=== PATIENT | female | born 1985 | race Hispanic/Latino ===

== ENCOUNTER 2019-04-02 02:31 | Emergency (ER) | payer MEDICAID ==
[2019-04-02] MEDS ORDERED: ONDANSETRON HCL 4 MG/2 ML VIAL ONE (03:17)
[2019-04-02] MEDS ORDERED: SODIUM CHLORIDE 0.9% 1000ML 1,000 ML IV ONE (03:17)
[2019-04-02] MEDS ORDERED: KETOROLAC TROMETHAMINE 15MG/ML ONE (03:17)
[2019-04-02 03:38] LABS: BASOPHILS % (AUTO) 0.5 % (0.0-5.0); EOSINOPHILS % (AUTO) 2.9 % (0.0-8.0); HEMATOCRIT 38.9 % (36-48); LYMPHOCYTES % (AUTO) 31.9 % (21.0-51.0); MEAN CORPUSCULAR HEMOGLOBIN 29.1 pg (27.0-33.0); MEAN CORPUSCULAR HGB CONC 33.9 g/dL (32.0-36.0); MEAN CORPUSCULAR VOLUME 85.8 fL (79-99); MONOCYTES % (AUTO) 7.4 % (3.0-13.0); NEUTROPHILS % (AUTO) 57.3 % (40.0-77.0); PLATELET COUNT (AUTO) 291 K/uL (130-400); RED BLOOD CELL COUNT(AUTO) 4.54 MIL/uL (4.00-5.50); RED CELL DISTRIBUTION WIDTH 15.7 % (11.0-15.5); WHITE BLOOD COUNT (AUTO) 8.2 K/uL (4.8-10.8)
[2019-04-02 03:47] LABS: CREATININE 1.1 mg/dL (0.5-1.5); POTASSIUM 3.5 mmol/L (3.5-5.1)
[2019-04-02 03:52] LABS: ALBUMIN 3.3 g/dL (3.5-5.0); BILIRUBIN,DIRECT 0.1 mg/dL (0.0-0.3); BILIRUBIN,TOTAL 0.4 mg/dL (0.2-1.0); TOTAL PROTEIN, SERUM 7.4 g/dL (6.0-8.3)
[2019-04-02 04:25] LABS: APPEARANCE,URINE CLEAR (CLEAR); BILIRUBIN,URINE NEGATIVE (NEGATIVE); COLOR,URINE YELLOW (YELLOW); GLUCOSE, URINE (UA) NEGATIVE (NEGATIVE); KETONES,URINE NEGATIVE (NEGATIVE); LEUKOCYTE ESTERASE ,URINE TRACE (NEGATIVE); NITRATE,URINE NEGATIVE (NEGATIVE); OCCULT BLOOD,URINE NEGATIVE (NEGATIVE); PROTEIN,URINE NEGATIVE (NEGATIVE)
[2019-04-02 04:34] LABS: AMPHET/METH SCREEN,URINE NEGATIVE (NEGATIVE); BARBITURATE SCREEN, URINE NEGATIVE (NEGATIVE); BENZODIAZEPINES SCREEN,URINE NEGATIVE (NEGATIVE); CANNABINOID SCREEN,URINE NEGATIVE (NEGATIVE); COCAINE SCREEN,URINE NEGATIVE (NEGATIVE); OPIATE SCREEN,URINE NEGATIVE (NEGATIVE); PHENCYCLIDINE SCREEN,URINE NEGATIVE (NEGATIVE)
[2019-04-02 04:37] LABS: BACTERIA,URINE Few /HPF (None Seen); MUCUS,URINE Moderate LPF (None Seen); RBC,URINE 0-1 /HPF (0-1); SQUAMOUS EPITHELIAL CELL,UR Moderate /HPF (0-2)
[2019-04-02] MEDS ORDERED: DICYCLOMINE HCL 10 MG/ML 2ML AMP IM ONE (04:51)
== END 2019-04-02 05:13 | disposition home or self-care (01) ==
LOC: EDH 02:31
DX: R10.13 Epigastric pain (principal); R11.0 Nausea; R63.0 Anorexia
CPT/HCPCS: 36415; 80048; 80076; 80305; 81001; 81025; 83690; 85025; 96372; 96374; 96375; 99285; J0500; J1885; J2405; J7030

== ENCOUNTER → 2019-04-04 | Outpatient (CLI) | payer MEDICAID | END | disposition home or self-care (01) | LOC: RAH 09:20 | PROVIDERS: ATTEND Family Medicine | DX: N83.01 Follicular cyst of right ovary (principal); R10.9 Unspecified abdominal pain | CPT/HCPCS: 76700; 76856 ==

== ENCOUNTER 2019-08-28 13:23 | Emergency (ER) | payer MEDICAID, OTHER ==
[2019-08-28] MEDS ORDERED: MAG HYDROX/AL HYDROX/SIMETH ES 30 ML SUSP UDCUP ONE (13:53)
[2019-08-28] MEDS ORDERED: LIDOCAINE HCL 2% VISCOUS 15 ML UDCUP ONE (13:53)
[2019-08-28 13:54] LABS: RAPID GROUP A STREP NEGATIVE (NEGATIVE)
[2019-08-28] MEDS ORDERED: LIDOCAINE HCL-MPF 1% 2ML VIAL ONE (14:57)
[2019-08-28] MEDS ORDERED: CEFTRIAXONE SODIUM 2 GM VIAL ONE (14:57)
[2019-08-28] MEDS ORDERED: IBUPROFEN 800 MG TAB ONE (14:57)
[2019-08-28] MEDS ORDERED: DEXAMETHASONE SOD PHOSPHATE 4 MG/ML 1ML VIAL ONE (14:57)
== END 2019-08-28 15:35 | disposition home or self-care (01) ==
LOC: EDH 13:23
DX: J03.90 Acute tonsillitis, unspecified (principal)
CPT/HCPCS: 87804 ×2; 87880; 96372 ×2; 99284; J0696; J1100; J3490

== ENCOUNTER 2020-04-02 16:16 | Emergency (ER) | payer SELFPAY ==
[2020-04-02 17:01] LABS: APPEARANCE,URINE Cloudy (CLEAR); BILIRUBIN,URINE Negative (NEGATIVE); COLOR,URINE Yellow (YELLOW); GLUCOSE, URINE (UA) Negative (NEGATIVE); KETONES,URINE Trace mg/dL (NEGATIVE); LEUKOCYTE ESTERASE ,URINE Moderate (NEGATIVE); NITRATE,URINE Negative (NEGATIVE); OCCULT BLOOD,URINE Negative (NEGATIVE); PH,URINE 5.5 (5.0-8.0); PROTEIN,URINE Negative (NEGATIVE)
[2020-04-02] MEDS ORDERED: KETOROLAC TROMETHAMINE 30MG/ML ONE (17:02)
[2020-04-02 17:09] LABS: HCG,QUAL RESULT NEGATIVE (NEGATIVE)
[2020-04-02 17:10] LABS: RBC,URINE 0-1 /HPF (0-1)
[2020-04-02 17:11] LABS: BACTERIA,URINE Few /HPF (None Seen); SQUAMOUS EPITHELIAL CELL,UR Moderate /HPF (0-2)
[2020-04-02] MEDS ORDERED: CEFTRIAXONE SODIUM 1 GM ONE (17:36)
[2020-04-02 18:07] LABS: BASOPHILS % (AUTO) 0.3 % (0.0-5.0); EOSINOPHILS % (AUTO) 2.4 % (0.0-8.0); HEMATOCRIT 39.8 % (36-48); LYMPHOCYTES % (AUTO) 25.8 % (21.0-51.0); MEAN CORPUSCULAR HEMOGLOBIN 27.1 pg (27.0-33.0); MEAN CORPUSCULAR HGB CONC 32.7 g/dL (32.0-36.0); MEAN CORPUSCULAR VOLUME 82.9 fL (79-99); NEUTROPHILS % (AUTO) 65.1 % (40.0-77.0); PLATELET COUNT (AUTO) 337 K/uL (130-400)
[2020-04-02 18:22] LABS: POTASSIUM 3.7 mmol/L (3.5-5.1)
[2020-04-02 18:26] LABS: ALBUMIN 3.6 g/dL (3.5-5.0); BILIRUBIN,TOTAL 0.6 mg/dL (0.2-1.0); TOTAL PROTEIN, SERUM 7.9 g/dL (6.0-8.3)
[2020-04-02] MEDS ORDERED: IOHEXOL-350 75 ML VIAL IV ONE (18:41)
[2020-04-02] MEDS ORDERED: MORPHINE SULFATE 4 MG/1ML SYG ONE (18:56)
[2020-04-02] MEDS ORDERED: ONDANSETRON HCL 4 MG/2 ML VIAL ONE (18:56)
== END 2020-04-02 19:44 | disposition home or self-care (01) ==
LOC: EDH 16:16
DX: N30.00 Acute cystitis without hematuria (principal)
CPT/HCPCS: 36415; 74177; 80053; 81001; 81025; 85025; 87088; 96374; 96375; 99285; J0696; J1885; J2270; J2405; J7030; Q9967

== ENCOUNTER 2020-11-11 09:24 | Inpatient (IN) | payer OTHER ==
[~2020-11-11] VITALS: Ht 157.5 cm; Wt 109.8 kg
[2020-11-11 09:50] LABS: BASOPHILS % (AUTO) 0.1 % (0.0-5.0); HEMATOCRIT 39.7 % (36-48); MEAN CORPUSCULAR HEMOGLOBIN 26.2 pg (27.0-33.0); MEAN CORPUSCULAR VOLUME 79.4 fL (79-99); MONOCYTES % (AUTO) 2.7 % (3.0-13.0); NEUTROPHILS % (AUTO) 85.9 % (40.0-77.0); PLATELET COUNT (AUTO) 315 K/uL (130-400); RED CELL DISTRIBUTION WIDTH 14.5 % (11.0-15.5); WHITE BLOOD COUNT (AUTO) 11.5 K/uL (4.8-10.8)
[2020-11-11 09:55] LABS: ABG BASE EXCESS -1.5 mmol/L (-2.0-3.0); ABG HCO3 19.8 mmol/L (21.0-28.0); ABG OXYGEN SATURATION 81.8 % (95.0-99.0); ABG PCO2 26 mmHg (32-45)
[2020-11-11 09:57] LABS: CARBON DIOXIDE 24 mmol/L (21-32); CHLORIDE 98 mmol/L (101-111); CREATININE 1.1 mg/dL (0.5-1.5); GLOMERULAR FILTR. RATE CALC 59 mL/min (>60); GLUCOSE,RANDOM 135 mg/dL (70-105); POTASSIUM 3.2 mmol/L (3.5-5.1); SODIUM SERUM 137 mmol/L (136-145); UREA NITROGEN, BLOOD 13 mg/dL (7-18)
[2020-11-11 09:58] LABS: INR 1.05 (0.85-1.15); PROTHROMBIN TIME 11.4 SEC (9.6-11.6)
[2020-11-11 10:12] LABS: ALANINE AMINOTRANSFERASE 92 U/L (12-78); ALBUMIN 3.4 g/dL (3.5-5.0); ASPARTATE AMINOTRANSFERASE 84 U/L (10-37); BILIRUBIN,TOTAL 0.6 mg/dL (0.2-1.0); CREATINE KINASE, TOTAL 170 U/L (21-232); MYOGLOBIN 87 ng/mL (10-92); TOTAL PROTEIN, SERUM 8.8 g/dL (6.0-8.3); TROPONIN I < 0.04 ng/mL (0.00-0.06)
[2020-11-11] MEDS ORDERED: ALBUTEROL INHALER 90MCG/INH IH ONE (10:41)
[2020-11-11] MEDS ORDERED: ENOXAPARIN SODIUM 60 MG/0.6 ML SQ ONE (10:42)
[2020-11-11] MEDS ORDERED: DEXAMETHASONE SOD PHOSPHATE 10MG/ML 1ML VIAL ONE (10:42)
[2020-11-11] MEDS ORDERED: FAMOTIDINE/PF 20 MG/2 ML VIAL IV ONE (10:43)
[2020-11-11] MEDS ORDERED: AZITHROMYCIN 500MG+NS 250ML 250 ML IV ONE ×2 (10:43→10:44)
[2020-11-11 11:18] LABS: CRP QUANTITATIVE 163.9 mg/L (0.00-9.0)
[2020-11-11] MEDS ORDERED: AZITHROMYCIN 500MG+NS 250ML 250 ML IV SCH (14:00)
[2020-11-11] MEDS ORDERED: ERGOCALCIFEROL (VITAMIN D2) 50,000 UNIT CAPSULE PO SCH (14:00)
[2020-11-11] MEDS: DEXAMETHASONE SOD PHOSPHATE 4 MG/ML 1ML VIAL IVP SCH (14:00)
[2020-11-11] MEDS ORDERED: MORPHINE SULFATE 2 MG/ML 1ML SYG IV PRN (14:00)
[2020-11-11] MEDS ORDERED: PHARMACY COMMUNICATION MISC SCH (14:00)
[2020-11-11] MEDS ORDERED: ACETAMINOPHEN 325 MG TAB PO PRN ×2 (14:00)
[2020-11-11] MEDS ORDERED: ONDANSETRON HCL 4 MG/2 ML VIAL IV PRN (14:00)
[2020-11-11] MEDS ORDERED: ERGOCALCIFEROL (VITAMIN D2) 50,000 UNIT CAPSULE ONE (14:06)
[2020-11-11] MEDS ORDERED: DOXYCYCLINE 100MG+NS 250ML 250 ML IV ONE (14:06)
[2020-11-11] MEDS ORDERED: CEFTRIAXONE SODIUM 1 GM ONE (14:07)
[2020-11-11] MEDS ORDERED: GUAIFENESIN-CODEINE 5 ML SYRUP ONE (15:44)
[2020-11-11 15:50] LABS: APPEARANCE,URINE Cloudy (CLEAR); BILIRUBIN,URINE Negative (NEGATIVE); COLOR,URINE Dark Yellow (YELLOW); GLUCOSE, URINE (UA) Negative (NEGATIVE); KETONES,URINE 15 mg/dL (NEGATIVE); LEUKOCYTE ESTERASE ,URINE Trace (NEGATIVE); NITRATE,URINE Negative (NEGATIVE); OCCULT BLOOD,URINE Negative (NEGATIVE); PROTEIN,URINE POS 2+ mg/dL (NEGATIVE)
[2020-11-11] MEDS ORDERED: SODIUM CHLORIDE 0.9% 1000ML 1,000 ML IV ONE (15:50)
[2020-11-11] MEDS ORDERED: REMDESIVIR (EUA) 520 200 MG in SODIUM CHLORIDE 0.9% 250 ML IV ONE (16:00)
[2020-11-11] MEDS ORDERED: COMPOUND IV REFRIGERATED 1 EACH IVSOLN MISC PRN (16:00)
[2020-11-11 16:46] LABS: BACTERIA,URINE Few /HPF (None Seen); RBC,URINE None Seen /HPF (0-1); WBC,URINE 0-1 /HPF (0-1)
[2020-11-11] MEDS ORDERED: LIDOCAINE HCL-MPF 1% 2ML VIAL IV PRN (19:00)
[2020-11-11] MEDS ORDERED: POTASSIUM CHLORIDE 10MEQ/100ML 100 ML IV PRN (19:00)
[2020-11-11] MEDS: FAMOTIDINE/PF 20 MG/2 ML VIAL IV SCH (21:00)
[2020-11-12] MEDS ORDERED: FAMOTIDINE/PF 20 MG/2 ML VIAL IV ONE (00:22)
[2020-11-12] MEDS ORDERED: IOHEXOL 350 MG/ML 100ML INFUS..BTL IV ONE (01:42)
[2020-11-12] MEDS: CEFTRIAXONE SODIUM 1 GM IVP SCH ×3 (02:00→14:00)
[2020-11-12 02:30] VITALS: BP 131/78
[2020-11-12] MEDS: DOXYCYCLINE 100MG+NS 250ML IV SCH ×2 (02:45→14:00)
[2020-11-12] MEDS: GUAIFENESIN-CODEINE 5 ML SYRUP PO PRN (03:47)
[2020-11-12] MEDS ORDERED: REMDESIVIR LABS MISC SCH (06:00)
[2020-11-12 06:48] LABS: BASOPHILS % (AUTO) 0.1 % (0.0-5.0); LYMPHOCYTES % (AUTO) 9.2 % (21.0-51.0); MEAN CORPUSCULAR HEMOGLOBIN 26.4 pg (27.0-33.0); MEAN CORPUSCULAR VOLUME 80.1 fL (79-99); MONOCYTES % (AUTO) 3.4 % (3.0-13.0); NEUTROPHILS % (AUTO) 86.8 % (40.0-77.0); PLATELET COUNT (AUTO) 271 K/uL (130-400); RED BLOOD CELL COUNT(AUTO) 4.62 MIL/uL (4.00-5.50); RED CELL DISTRIBUTION WIDTH 14.5 % (11.0-15.5); WHITE BLOOD COUNT (AUTO) 11.1 K/uL (4.8-10.8)
[2020-11-12 07:00] VITALS: BP 128/74
[2020-11-12 07:10] LABS: ALBUMIN 3.1 g/dL (3.5-5.0); BILIRUBIN,TOTAL 0.5 mg/dL (0.2-1.0); CREATININE 0.8 mg/dL (0.5-1.5); POTASSIUM 3.4 mmol/L (3.5-5.1); TOTAL PROTEIN, SERUM 8.3 g/dL (6.0-8.3)
[2020-11-12 07:30] LABS: CRP QUANTITATIVE 197.3 mg/L (0.00-9.0)
[2020-11-12] MEDS ORDERED: POTASSIUM CHLORIDE 20MEQ/100ML 100 ML IV PRN ×2 (07:45)
[2020-11-12] MEDS ORDERED: POTASSIUM CHLORIDE 10% ELIXIR 20 MEQ/15 ML UDCUP PO PRN (07:45)
[2020-11-12] MEDS ORDERED: LIDOCAINE HCL-MPF 1% 2ML VIAL IV PRN ×2 (07:45)
[2020-11-12 08:11] LABS: BILIRUBIN,DIRECT 0.1 mg/dL (0.0-0.3); MAGNESIUM 2.2 mg/dL (1.80-2.40)
[2020-11-12] MEDS: FAMOTIDINE/PF 20 MG/2 ML VIAL IV SCH ×2 (08:57→20:15)
[2020-11-12] MEDS: ASCORBIC ACID 500 MG TAB PO SCH (08:57)
[2020-11-12] MEDS: ZINC SULFATE 220 CAPSULE PO SCH (08:57)
[2020-11-12] MEDS: ENOXAPARIN SODIUM 40 MG/0.4 ML SYRINGE SQ SCH ×2 (11:30→20:15)
[2020-11-12] MEDS ORDERED: PHARMACY COMMUNICATION MISC SCH (11:45)
[2020-11-12 11:50] VITALS: BP 111/82
[2020-11-12] MEDS: DEXAMETHASONE SOD PHOSPHATE 4 MG/ML 1ML VIAL IVP SCH (14:00)
[2020-11-12 15:45] VITALS: BP 115/96
[2020-11-12 20:00] VITALS: BP 122/79
[2020-11-13] VITALS (7 sets, daily range): BP systolic 109–125; BP diastolic 58–84
[2020-11-13 05:22] LABS: BASOPHILS % (AUTO) 0.1 % (0.0-5.0); EOSINOPHILS % (AUTO) 0.9 % (0.0-8.0); HEMATOCRIT 38.2 % (36-48); LYMPHOCYTES % (AUTO) 12.1 % (21.0-51.0); MEAN CORPUSCULAR HEMOGLOBIN 26.2 pg (27.0-33.0); MEAN CORPUSCULAR HGB CONC 32.2 g/dL (32.0-36.0); MEAN CORPUSCULAR VOLUME 81.3 fL (79-99); MONOCYTES % (AUTO) 3.3 % (3.0-13.0); NEUTROPHILS % (AUTO) 82.9 % (40.0-77.0); PLATELET COUNT (AUTO) 350 K/uL (130-400); RED CELL DISTRIBUTION WIDTH 14.6 % (11.0-15.5); WHITE BLOOD COUNT (AUTO) 9.1 K/uL (4.8-10.8)
[2020-11-13] MEDS: GUAIFENESIN-CODEINE 5 ML SYRUP PO PRN (05:27)
[2020-11-13 05:40] LABS: ALBUMIN 3.1 g/dL (3.5-5.0); BILIRUBIN,TOTAL 0.7 mg/dL (0.2-1.0); POTASSIUM 3.4 mmol/L (3.5-5.1); TOTAL PROTEIN, SERUM 8.3 g/dL (6.0-8.3)
[2020-11-13 06:03] LABS: CRP QUANTITATIVE 119.2 mg/L (0.00-9.0)
[2020-11-13] MEDS: ASCORBIC ACID 500 MG TAB PO SCH (09:13)
[2020-11-13] MEDS: ENOXAPARIN SODIUM 40 MG/0.4 ML SYRINGE SQ SCH ×2 (09:14→20:54)
[2020-11-13] MEDS: FAMOTIDINE/PF 20 MG/2 ML VIAL IV SCH ×2 (09:14→20:39)
[2020-11-13] MEDS: ZINC SULFATE 220 CAPSULE PO SCH (09:14)
[2020-11-13] MEDS ORDERED: SODIUM CHLORIDE 45 ML SPRY NS PRN (11:45)
[2020-11-13] MEDS: DEXAMETHASONE SOD PHOSPHATE 4 MG/ML 1ML VIAL IVP SCH (14:03)
[2020-11-13] MEDS: REMDESIVIR (EUA) 520 100 MG in SODIUM CHLORIDE 0.9% 250 ML IV SCH ×2 (16:54→16:56)
[2020-11-14 03:29] VITALS: BP 106/59
[2020-11-14 05:40] LABS: EOSINOPHILS % (AUTO) 0.1 % (0.0-8.0); HEMATOCRIT 38.2 % (36-48); LYMPHOCYTES % (AUTO) 7.5 % (21.0-51.0); MEAN CORPUSCULAR HEMOGLOBIN 26.3 pg (27.0-33.0); MEAN CORPUSCULAR HGB CONC 32.5 g/dL (32.0-36.0); MEAN CORPUSCULAR VOLUME 80.9 fL (79-99); MONOCYTES % (AUTO) 3.5 % (3.0-13.0); NEUTROPHILS % (AUTO) 88.3 % (40.0-77.0); PLATELET COUNT (AUTO) 322 K/uL (130-400); RED BLOOD CELL COUNT(AUTO) 4.72 MIL/uL (4.00-5.50); RED CELL DISTRIBUTION WIDTH 14.4 % (11.0-15.5)
[2020-11-14 06:04] LABS: ALBUMIN 2.9 g/dL (3.5-5.0); BILIRUBIN,TOTAL 0.9 mg/dL (0.2-1.0); CREATININE 0.8 mg/dL (0.5-1.5); POTASSIUM 3.7 mmol/L (3.5-5.1); TOTAL PROTEIN, SERUM 8.1 g/dL (6.0-8.3)
[2020-11-14 06:12] LABS: CRP QUANTITATIVE 237.4 mg/L (0.00-9.0)
[2020-11-14 07:31] VITALS: BP 143/74
[2020-11-14] MEDS: ASCORBIC ACID 500 MG TAB PO SCH (08:14)
[2020-11-14] MEDS: FAMOTIDINE/PF 20 MG/2 ML VIAL IV SCH ×2 (08:14→20:36)
[2020-11-14] MEDS: ENOXAPARIN SODIUM 40 MG/0.4 ML SYRINGE SQ SCH ×2 (08:14→20:36)
[2020-11-14] MEDS: ZINC SULFATE 220 CAPSULE PO SCH (08:14)
[2020-11-14 11:45] VITALS: BP 106/65
[2020-11-14] MEDS: DEXAMETHASONE SOD PHOSPHATE 4 MG/ML 1ML VIAL IVP SCH (13:46)
[2020-11-14] MEDS: GUAIFENESIN-CODEINE 5 ML SYRUP PO PRN (13:55)
[2020-11-14 16:00] VITALS: BP 105/59
[2020-11-14] MEDS: REMDESIVIR (EUA) 520 100 MG in SODIUM CHLORIDE 0.9% 250 ML IV SCH (16:10)
[2020-11-14] MEDS: POTASSIUM CHLORIDE 20 MEQ ERTAB PO PRN ×2 (16:33→18:38)
[2020-11-14 20:00] VITALS: BP 105/56
[2020-11-14 23:53] VITALS: BP 114/74
[2020-11-15] MEDS: GUAIFENESIN-CODEINE 5 ML SYRUP PO PRN ×3 (03:03→22:20)
[2020-11-15 03:59] VITALS: BP 115/68
[2020-11-15 06:31] LABS: ALBUMIN 2.8 g/dL (3.5-5.0); BILIRUBIN,TOTAL 0.6 mg/dL (0.2-1.0); CREATININE 0.8 mg/dL (0.5-1.5); POTASSIUM 3.9 mmol/L (3.5-5.1); TOTAL PROTEIN, SERUM 7.8 g/dL (6.0-8.3)
[2020-11-15 08:00] VITALS: BP 120/60
[2020-11-15] MEDS: ASCORBIC ACID 500 MG TAB PO SCH (09:43)
[2020-11-15] MEDS: FAMOTIDINE/PF 20 MG/2 ML VIAL IV SCH ×2 (09:43→21:57)
[2020-11-15] MEDS: ZINC SULFATE 220 CAPSULE PO SCH (09:43)
[2020-11-15] MEDS: ENOXAPARIN SODIUM 40 MG/0.4 ML SYRINGE SQ SCH ×2 (09:44→21:57)
[2020-11-15 12:00] VITALS: BP 120/70
[2020-11-15] MEDS: DEXAMETHASONE SOD PHOSPHATE 4 MG/ML 1ML VIAL IVP SCH (15:05)
[2020-11-15] MEDS ORDERED: METOPROLOL TARTRATE 1 MG/ML 5ML VIAL IV STA (15:13)
[2020-11-15] MEDS ORDERED: METOPROLOL TARTRATE 1 MG/ML 5ML VIAL IV ONE (15:15)
[2020-11-15 15:19] LABS: ABG BASE EXCESS 1.6 mmol/L (-2.0-3.0); ABG HCO3 24.7 mmol/L (21.0-28.0); ABG OXYGEN SATURATION 87.2 % (95.0-99.0); ABG PCO2 34 mmHg (32-45)
[2020-11-15] MEDS ORDERED: METOPROLOL TARTRATE 1 MG/ML 5ML VIAL IV PRN (15:30)
[2020-11-15 16:00] VITALS: BP 108/86
[2020-11-15 16:03] LABS: HEMATOCRIT 38.3 % (36-48); MEAN CORPUSCULAR HEMOGLOBIN 26.2 pg (27.0-33.0); MEAN CORPUSCULAR HGB CONC 32.1 g/dL (32.0-36.0); MEAN CORPUSCULAR VOLUME 81.5 fL (79-99); PLATELET COUNT (AUTO) 298 K/uL (130-400); RED CELL DISTRIBUTION WIDTH 14.3 % (11.0-15.5); WHITE BLOOD COUNT (AUTO) 16.4 K/uL (4.8-10.8)
[2020-11-15 16:11] LABS: CREATININE 0.9 mg/dL (0.5-1.5); POTASSIUM 3.5 mmol/L (3.5-5.1)
[2020-11-15] MEDS: REMDESIVIR (EUA) 520 100 MG in SODIUM CHLORIDE 0.9% 250 ML IV SCH (16:22)
[2020-11-15 16:26] LABS: ALBUMIN 2.9 g/dL (3.5-5.0); BILIRUBIN,TOTAL 0.7 mg/dL (0.2-1.0); CRP QUANTITATIVE 157.2 mg/L (0.00-9.0); MAGNESIUM 2.4 mg/dL (1.80-2.40); TOTAL PROTEIN, SERUM 7.8 g/dL (6.0-8.3)
[2020-11-15 16:28] LABS: EOSINOPHILS % (MANUAL) 1 % (1-6); LYMPHOCYTES % (MANUAL) 9 % (22-44); MONOCYTES % (MANUAL) 4 % (2-9); SEGMENTED NEUTROPHILS % 86 % (40-70)
[2020-11-15 16:29] LABS: MAN.DIFF COMMENT-IMPRESSION MANUAL DIFFERENTIAL
[2020-11-15 16:30] LABS: PLATELET MORPHOLOGY COMMENT ADEQUATE
== END 2020-11-16 00:25 | disposition short-term general hospital (02) | DRG 177 ==
LOC: EDH 09:24 → EDHIP 09:25 → 2AH 11-12 02:18 → 4BH 11-14 11:37
PROVIDERS: ADMIT Internal Medicine; ATTEND Internal Medicine
PROC: XW13325 Transfusion of Convalescent Plasma (Nonautologous) into Peripheral Vein, Percutaneous Approach, New Technology Group 5 (ICD-10-PCS; 2020-11-11)
PROC: XW033E5 Introduction of Remdesivir Anti-infective into Peripheral Vein, Percutaneous Approach, New Technology Group 5 (ICD-10-PCS; principal; 2020-11-15)
DX: U07.1 COVID-19 (principal); J12.81 Pneumonia due to SARS-associated coronavirus; J96.01 Acute respiratory failure with hypoxia; N17.9 Acute kidney failure, unspecified; D68.59 Other primary thrombophilia; Z68.41 Body mass index [BMI] 40.0-44.9, adult; E87.6 Hypokalemia; E66.01 Morbid (severe) obesity due to excess calories; D72.810 Lymphocytopenia; R74.01 Elevation of levels of liver transaminase levels; Z98.51 Tubal ligation status
CPT/HCPCS: 36415; 36600; 71045; 71275; 80053; 81001; 82248; 82550; 82728; 82803; 82948; 83605; 83615; 83735; 83874; 84145; 84484; 84702; 85025; 85378; 85610; 85651; 85730; 86140; 86900; 86901; 86927; 87040; 87088; 87426; 87804; 93005; 94660; G0378; J0456; J0696; J1100; J1650; J3490; J7030; J7050; Q9967